=== PATIENT | female | born 1980 | race Caucasian/White ===

== ENCOUNTER 2018-08-16 20:21 | Emergency (ER) | payer BC ==
[2018-08-16 20:36] VITALS: BP 136/74
[2018-08-16] MEDS ORDERED: DEXAMETHASONE 4 MG TABLET PO ONE (21:57)
[2018-08-16] MEDS ORDERED: KETOROLAC TROMETHAMINE 60 MG/2 ML SDV IM ONE (21:57)
[2018-08-16] MEDS ORDERED: MORPHINE SULFATE IR 15 MG TABLET PO ONE (21:58)
[2018-08-16] MEDS ORDERED: LIDOCAINE 5% (700 MG) TRANSDERMAL ADH..PATCH TP ONE (21:58)
--- NOTE | 2018-08-16 22:01 | ER Document Report ---
ED General - General Chief Complaint: Neck and L side pain Stated Complaint: NECK/SIDE PAIN Time Seen by Provider: 08/16/18 21:27 Notes: Patient is a 38-year-old female without medical problems who presents with a relatively acute onset of left-sided neck and back pain as well as left upper extremity pain. The patient reports that she was sitting at her desk working when she had a relatively abrupt onset of the pain to these areas. She does describe it as a stabbing, aching, shooting discomfort. She has not tried anything for relief of the pain. She states if she sits still the pain goes away. Standing or moving worsens the pain. No history of similar symptoms in the past. She has not seen her general doctor regarding today's concerns. She denies any associated weakness or numbness. No bowel or bladder incontinence. No urinary retention. No trauma to the affected areas. TRAVEL OUTSIDE OF THE [place] IN LAST 30 DAYS: No - Related Data Allergies/Adverse Reactions: acetaminophen [From Vicodin] Allergy (Verified 08/16/18 20:27) hydrocodone [From Vicodin] Allergy (Verified 08/16/18 20:27) Past Medical History - General Information source: Patient - Social History Smoking Status: Current Every Day Smoker Chew tobacco use (# tins/day): No Frequency of alcohol use: Occasional Drug Abuse: None Lives with: Spouse/Significant other Family History: Reviewed & Not Pertinent Patient has suicidal ideation: No Patient has homicidal ideation: No Renal/ Medical History: Denies: Hx Peritoneal Dialysis Past Surgical History: Reports: Hx Orthopedic Surgery - shoulder Rt. Review of Systems - Review of Systems Notes: Constitutional: Negative for fever. HENT: Negative for sore throat. Eyes: Negative for visual changes. Cardiovascular: Negative for chest pain. Respiratory: Negative for shortness of breath. Gastrointestinal: Negative for abdominal pain, vomiting or diarrhea. Genitourinary: Negative for dysuria. Musculoskeletal: Positive for mid back and left neck pain Skin: Negative for rash. Neurological: Negative for headaches, weakness or numbness. 10 point ROS negative except as marked above and in HPI. Physical Exam - Vital signs Vitals: Temp Pulse Resp BP Pulse Ox 99.6 F 94 16 136/74 H 99 08/16/18 20:35 08/16/18 20:35 08/16/18 20:35 08/16/18 20:35 08/16/18 20:35 Interpretation: Normal Notes: PHYSICAL EXAMINATION: GENERAL: Appears moderately uncomfortable but in no acute distress HEAD: Atraumatic, normocephalic. EYES: Pupils equal round and reactive to light, extraocular movements intact, sclera anicteric, conjunctiva are normal. ENT: nares patent, oropharynx clear without exudates. Moist mucous membranes. NECK: Normal range of motion, supple without lymphadenopathy, no midline spinal tenderness, step-offs or deformities. Able to range the neck 45 degrees bilaterally. LUNGS: Breath sounds clear to auscultation bilaterally and equal. No wheezes rales or rhonchi. HEART: Regular rate and rhythm without murmurs ABDOMEN: Soft, nontender, normoactive bowel sounds. No guarding, no rebound. No masses appreciated. Back: No midline spinal tenderness, step-offs or deformities. Mild pain on palpation of the paraspinous region of the mid left back EXTREMITIES: Normal range of motion, no pitting or edema. No cyanosis. NEUROLOGICAL: Face symmetric. Tongue protrudes midline. Extraocular motions intact. Pupils are 2 mm and equally reactive. Normal speech, normal gait. 5 out of 5 strength in both the distal and proximal upper and lower extremities bilaterally. Sensation is grossly intact throughout. Finger to nose testing normal. Pronator drift normal. PSYCH: Normal mood, normal affect. SKIN: Warm, Dry, normal turgor, no rashes or lesions noted. Course - Re-evaluation Re-evalutation: 08/17/18 01:54 Patient presents with complaints of pain to the left side of her neck and left back. She states that the pain radiates into her left upper extremity. Her examination is benign, RMU motor and sensory distribution is intact bilaterally. 5 out of 5 biceps and triceps strength bilaterally. 5 out of 5 distal and proximal lower extremities. She is able to ambulate without any difficulty. No sensory loss. There is no swelling or deformities of the neck or the area of the back that she is complaining about pain. Presentation appears most consistent with either a musculoskeletal issue or an impingement cervical nerve root although the distribution along her back would not be consistent with a cervical nerve root impingement. It is possible that she had an impingement of her cervical nerve root causing her left upper extremity symptoms as well as her left-sided neck pain and then in a effort to hold herself in a position of comfort may have strained her mid back. I have explained to the patient that there is a degree of diagnostic uncertainty regarding her presentation today but it does not appear to be from any immediately life or neuro compromising situation. I do not believe there is any indication for emergent imaging at this point. She has had improvement of her symptoms after receiving steroids and pain medications. At this time will discharge with return precautions and follow-up recommendations. Verbal discharge instructions given a the bedside and opportunity for questions given. Medication warnings reviewed. Patient is in agreement with this plan and has verbalized understanding of return precautions and the need for primary care follow-up in the next 24-72 hours. - Vital Signs Vital signs: Temp Pulse Resp BP Pulse Ox 98.6 F 87 18 136/74 H 100 08/16/18 23:43 08/16/18 23:43 08/16/18 23:43 08/16/18 20:35 08/16/18 23:43 Discharge - Discharge Clinical Impression: Neck pain on left side, Mid back pain on left side Condition: Good Disposition: HOME, SELF-CARE Additional Instructions: Your pain is likely related to impingement one of your cervical nerve roots and will take 6-8 weeks completely resolved. For your pain: Take ibuprofen 600 mg and acetaminophen 1000 mg every 6 hours together as needed for pain. If this does not control your pain you may take 15 mg of oral morphine every 4 hours as needed. Please be very careful about using the oral morphine and only use this for severe pain. In addition to this, purchased the product that is sold over- the-counter cold Aspercreme with lidocaine. Apply to the affected area per bottle instructions. You should also apply heat to the area regularly using an electric heating plant pad. Return to the emergency department immediately if you develop weakness, loss of sensation, chest pain, shortness of breath, have worsening of your symptoms, or any other symptoms that are worrisome to you. Prescriptions: Morphine Sulfate [Morphine Ir 15 mg Tablet] 15 mg PO Q6HP PRN #6 tablet PRN Reason: Referrals: TIM CLANCY, LENO [[facility]ED STAFF] - Follow up as needed
== END 2018-08-16 23:44 | disposition home or self-care (01) ==
LOC: ER 20:21
DX: M54.2 Cervicalgia (principal); M54.89 Other dorsalgia; M79.602 Pain in left arm; F17.200 Nicotine dependence, unspecified, uncomplicated; Z88.6 Allergy status to analgesic agent; Z88.5 Allergy status to narcotic agent
CPT/HCPCS: 99283; 96372; J1885

== ENCOUNTER 2019-02-24 08:26 | Emergency (ER) | payer BC ==
--- NOTE | 2019-02-24 09:36 | ER Document Report ---
ED Medical Screen (RME) - General Chief Complaint: Chest Pain Stated Complaint: CHEST PAIN Time Seen by Provider: 02/24/19 09:33 Mode of Arrival: Ambulatory Information source: Patient Notes: 38-year-old patient with presents to ED for complaint of palpitation tachycardia heat flashes and a crawling feeling in her chest intermittently for the last week. She states she does not have any cardiac history but she does have a history of anxiety depression and panic attacks. She also has a history of rotator cuff surgery. She states she has a lot of stress right now is she is getting kicked out of her house and does not know if this is the cause. Vital signs are stable at this time lungs are clear abdomen soft nontender no point tenderness to her chest. Patient is alert oriented respirations regular and unlabored speaking in full sentence I have greeted and performed a rapid initial assessment of this patient. A comprehensive ED assessment and evaluation of the patient, analysis of test results and completion of medical decision making process will be conducted by an additional ED providers. TRAVEL OUTSIDE OF THE [place] IN LAST 30 DAYS: No - Related Data Allergies/Adverse Reactions: hydrocodone [From Vicodin] Allergy (Verified 02/24/19 08:28) Past Medical History - Social History Chew tobacco use (# tins/day): No Frequency of alcohol use: None Drug Abuse: None Renal/ Medical History: Denies: Hx Peritoneal Dialysis Psychiatric Medical History: Reports: Hx Depression - anxiety, panic attacks Past Surgical History: Reports: Hx Orthopedic Surgery - shoulder Rt. Physical Exam - Vital signs Vitals: Temp Pulse Resp BP Pulse Ox 98.8 F 79 18 126/78 H 99 02/24/19 08:31 02/24/19 08:31 02/24/19 08:31 02/24/19 08:31 02/24/19 08:31 Course - Vital Signs Vital signs: Temp Pulse Resp BP Pulse Ox 98.8 F 79 18 126/78 H 99 02/24/19 08:31 02/24/19 08:31 02/24/19 08:31 02/24/19 08:31 02/24/19 08:31
--- NOTE | 2019-02-24 10:02 | ER Document Report ---
ED General - General Chief Complaint: Chest Pain Stated Complaint: CHEST PAIN Time Seen by Provider: 02/24/19 09:33 Mode of Arrival: Ambulatory Notes: 38-year-old patient with history of anxiety, depression, panic attacks presents to ED for complaint of palpitations and tachycardia, hot flashes and a "jolt"- like feeling in her chest intermittently for the last week. She describes the location is substernal sharp, and she will get associated tingling in her face and arms. She has decreased p.o. intake and decreased sleep. She has increased anxiety at this time. She has intermittent nausea but no vomiting. She denies shortness of breath. She states she does not have any cardiac history. She states she has a lot of stress right now is she is getting kicked out of her house and does not know if this is the cause. TRAVEL OUTSIDE OF THE [place] IN LAST 30 DAYS: No - Related Data Allergies/Adverse Reactions: hydrocodone [From Vicodin] Allergy (Verified 02/24/19 08:28) Past Medical History - General Information source: Patient - Social History Smoking Status: Never Smoker Chew tobacco use (# tins/day): No Frequency of alcohol use: None Drug Abuse: None Family History: Reviewed & Not Pertinent Patient has suicidal ideation: No Patient has homicidal ideation: No Renal/ Medical History: Denies: Hx Peritoneal Dialysis Psychiatric Medical History: Reports: Hx Depression - anxiety, panic attacks Past Surgical History: Reports: Hx Orthopedic Surgery - shoulder Rt. Review of Systems - Review of Systems Constitutional: See HPI EENT: No symptoms reported Cardiovascular: See HPI Respiratory: See HPI Gastrointestinal: See HPI Genitourinary: No symptoms reported Female Genitourinary: No symptoms reported Musculoskeletal: No symptoms reported Skin: No symptoms reported Hematologic/Lymphatic: No symptoms reported Neurological/Psychological: No symptoms reported Physical Exam - Vital signs Vitals: Temp Pulse Resp BP Pulse Ox 98.8 F 79 18 126/78 H 99 02/24/19 08:31 02/24/19 08:31 02/24/19 08:31 02/24/19 08:31 02/24/19 08:31 - Notes Notes: PHYSICAL EXAMINATION: Reviewed vital signs and charting by RN GENERAL: Alert, interacts well. No acute distress. HEAD: Normocephalic, atraumatic. EYES: Pupils equal and round. Extraocular movements intact. ENT: Oral mucosa moist, tongue midline. NECK: Full range of motion. Supple. Trachea midline. LUNGS: Clear to auscultation bilaterally, no wheezes, rales, or rhonchi. No respiratory distress. HEART: Regular rate and rhythm. No murmur ABDOMEN: soft, tender to palpation left upper quadrant. Non-distended. Bowel sounds present. no McBurney's point tenderness, no Noe sign. EXTREMITIES: Moves all 4 extremities spontaneously. No edema, No cyanosis. Normal distal neurovascular exam NEUROLOGIC: Oriented and appropriate. Normal speech. PSYCH: Normal affect, depressed mood with crying. SKIN: Warm, dry, normal turgor. No rashes or lesions noted. Course - Re-evaluation Re-evalutation: 02/24/19 10:01 Overall well-appearing. Patient with a lot of stressors in her life and a psychological history. Chest pain workup has been initiated. 02/24/19 11:45 Lab work returned and within normal ranges. Troponin was negative. Chest x-ray showed no acute findings without widened mediastinum. Patient has stressors in her life that could be precipitating the symptoms. She has no risk factors. Heart score 1. Discussed case with Dr. Lazo, supervising physician, who agrees that this patient carries a low risk for cardiac event at this time. I will discuss this with the patient. Delta troponin of little clinical value. I have very low suspicion for pulmonary embolism, aortic dissection, aortic aneurysm, or any other life-threatening cardiac or pulmonary pathology. At this time patient is stable for discharge. - Vital Signs Vital signs: Temp Pulse Resp BP Pulse Ox 98.3 F 76 16 120/74 100 02/24/19 11:58 02/24/19 11:58 02/24/19 11:58 02/24/19 11:58 02/24/19 11:58 - Laboratory Result Diagrams: 02/24/19 09:47 02/24/19 09:47 Laboratory results interpreted by me: 02/24/19 02/24/19 09:47 09:47 WBC 14.4 H RDW 14.8 H Seg Neutrophils % 79.6 H Absolute Neutrophils 11.5 H Calcium 10.3 H Discharge - Discharge Clinical Impression: Stress at home Chest pain Qualifiers: Chest pain type: unspecified Qualified Code(s): R07.9 - Chest pain, unspecified Condition: Good Disposition: HOME, SELF-CARE Additional Instructions: You were seen today for chest pain. The exact cause of your pain is unclear. However, based on your cardiac enzyme testing, chest x-ray, and EKG it does not appear that it is from an immediately life-threatening cause at this time. Although your testing here is normal is critical that you follow-up with your primary care physician for continued evaluation of this chest pain and possible stress testing. I recommended follow-up with your primary care provider to be evaluated for consideration of a stress test. Please return to emergency department immediately if you have worsening of your chest pain, shortness of breath, vomiting, become unable to exert yourself due to pain or difficulty breathing, you pass out, or have any pain that radiates into your arms, jaw, or back. Please also return if you have any additional symptoms that are concerning to you.
[2019-02-24 10:12] LABS: ABSOLUTE BASOPHILS # (AUTO) 0.1 10^3/uL (0.0-0.2); ABSOLUTE EOSINOPHILS # (AUTO) 0.1 10^3/uL (0.0-0.6); ABSOLUTE MONOCYTES (AUTO) 0.7 10^3/uL (0.1-1.4); ABSOLUTE NEUT (AUTO) 11.5 10^3/uL (1.7-8.2); APPEARANCE,URINE SLIGHTLY-CLOUDY; BILIRUBIN,URINE NEGATIVE (NEGATIVE); COLOR,URINE YELLOW; EOSINOPHILS % (AUTO) 0.9 % (0-6); GLUCOSE, URINE NEGATIVE (NEGATIVE); HEMATOCRIT 37.3 % (36.0-47.0); HEMOGLOBIN 12.4 g/dL (12.0-15.5); KETONES,URINE NEGATIVE (NEGATIVE); LEUKOCYTE ESTERASE,URINE NEGATIVE (NEGATIVE); LYMPHOCYTES % (AUTO) 13.9 % (13-45); MEAN CORPUSCULAR HEMOGLOBIN 29.8 pg (27.0-33.4); MEAN CORPUSCULAR HGB CONC 33.1 g/dL (32.0-36.0); MEAN CORPUSCULAR VOLUME 90 fl (80-97); MONOCYTES % (AUTO) 4.6 % (3-13); NITRITE,URINE NEGATIVE (NEGATIVE); PLATELET COUNT 317 10^3/uL (150-450); PROTEIN,URINE NEGATIVE (NEGATIVE); RED BLOOD COUNT 4.16 10^6/uL (3.72-5.28); RED CELL DISTRIBUTION WIDTH 14.8 % (11.5-14.0); SEGMENTED NEUTROPHILS % (AUTO) 79.6 % (42-78); TOTAL CELLS COUNTED % (AUTO) 100 %; URINE SPECIFIC GRAVITY 1.012; UROBILINOGEN,URINE NEGATIVE mg/dL (<2.0); WHITE BLOOD COUNT 14.4 10^3/uL (4.0-10.5)
[2019-02-24 10:24] LABS: ALANINE AMINOTRANSFERASE 47 U/L (9-52); ALBUMIN 4.3 g/dL (3.5-5.0); ALKALINE PHOSPHATASE 81 U/L (38-126); ANION GAP 9 (5-19); ASPARTATE AMINO TRANSFERASE 26 U/L (14-36); BILIRUBIN,DIRECT 0.2 mg/dL (0.0-0.4); BILIRUBIN,TOTAL 0.5 mg/dL (0.2-1.3); BLOOD UREA NITROGEN 10 mg/dL (7-20); CALCIUM 10.3 mg/dL (8.4-10.2); CARBON DIOXIDE 25 mmol/L (22-30); CHLORIDE 106 mmol/L (98-107); GLUCOSE 106 mg/dL (75-110); POTASSIUM 4.2 mmol/L (3.6-5.0); SODIUM 140.2 mmol/L (137-145); TOTAL PROTEIN 7.4 g/dL (6.3-8.2)
[2019-02-24 10:38] LABS: CREATINE KINASE MB < 0.22 ng/mL (<4.55); TROPONIN I < 0.012 ng/mL
--- NOTE | 2019-02-24 10:53 | RADIOLOGY REPORT (SQ) ---
EXAM DESCRIPTION: CHEST 2 VIEWS COMPLETED DATE/TIME: 02/24/2019 10:04 am REASON FOR STUDY: chest pain COMPARISON: None. EXAM PARAMETERS: NUMBER OF VIEWS: two views TECHNIQUE: Digital Frontal and Lateral radiographic views of the chest acquired. RADIATION DOSE: NA LIMITATIONS: none FINDINGS: LUNGS AND PLEURA: No opacities, masses or pneumothorax. No pleural effusion. MEDIASTINUM AND HILAR STRUCTURES: No masses or contour abnormalities. HEART AND VASCULAR STRUCTURES: Heart normal size. No evidence for failure. BONES: No acute findings. HARDWARE: None in the chest. OTHER: No other significant finding. IMPRESSION: NO ACUTE RADIOGRAPHIC FINDING IN THE CHEST. TECHNICAL DOCUMENTATION: JOB ID: [id number] [employer]- All Rights Reserved Reading location - IP/workstation name: [email or web address]
[2019-02-24 11:59] VITALS: BP 120/74
--- NOTE | 2019-02-24 15:32 | EKG REPORT ---
SEVERITY:- BORDERLINE ECG - SINUS RHYTHM BORDERLINE T WAVE ABNORMALITIES : Confirmed by: Lourdes Simon MD 24-Feb-2019 15:31:46
== END 2019-02-24 11:58 | disposition home or self-care (01) ==
LOC: ER 08:26
DX: F43.9 Reaction to severe stress, unspecified (principal); R07.9 Chest pain, unspecified; F41.9 Anxiety disorder, unspecified; F32.9 Major depressive disorder, single episode, unspecified; R20.0 Anesthesia of skin; R11.0 Nausea
CPT/HCPCS: 36415; 71046; 80053; 81001; 82553; 84443; 84484; 84703; 85025; 93005; 93010; 99285